=== PATIENT | female | born 1950 | race Caucasian/White ===

== ENCOUNTER → 2017-03-20 | Outpatient (CLI) | payer MEDICARE, BC ==
[~2017-03-20] MED LIST: ASPIR 8181 MG PO; CEVIMELINE HCL30 MG PO; COLACE-DPS100 MG PO; DAILY MULTIPLE1 EAC1 PO; DESYREL-DPS50 MG PO; LIPITOR DPS20 MG PO; MAALOX DPS30 ML PO; MESTINON DPS60 MG PO; PROBIOTIC1 EAC1 PO; TYLENOL DPS325 MG PO; VITAMIN C1000 MG PO; VITAMIN D-32000 UNI1 PO
== END | disposition home or self-care (01) ==
LOC: RAD.S 03-14 10:26
DX: M54.5 Low back pain (principal); M47.817 Spondylosis without myelopathy or radiculopathy, lumbosacral region; R20.0 Anesthesia of skin; R53.1 Weakness

== ENCOUNTER 2017-04-01 12:10 | Observation (INO) | payer MEDICARE, BC ==
[~2017-04-01] VITALS: Ht 154.9 cm; Wt 74.2 kg
[2017-04-04] MEDS ORDERED: LIPITOR DPS20 MG PO (09:40)
[2017-04-04] MEDS ORDERED: DAILY MULTIPLE1 EAC1 PO (09:40)
[2017-04-04] MEDS ORDERED: CEVIMELINE HCL30 MG PO (09:40)
[2017-04-04] MEDS ORDERED: VITAMIN C1000 MG PO (09:40)
[2017-04-04] MEDS ORDERED: PROBIOTIC1 EAC1 PO (09:41)
[2017-04-04] MEDS ORDERED: VITAMIN D-32000 UNI1 PO (09:41)
[2017-04-04] MEDS ORDERED: MESTINON DPS60 MG PO (09:41)
[2017-04-04] MEDS ORDERED: ASPIR 8181 MG PO (09:41)
[2017-04-04] MEDS ORDERED: COLACE-DPS100 MG PO (09:42)
[2017-04-04] MEDS ORDERED: MAALOX DPS30 ML PO (09:42)
[2017-04-04] MEDS ORDERED: DESYREL-DPS50 MG PO (09:42)
[2017-04-04] MEDS ORDERED: TYLENOL DPS325 MG PO (09:42)
--- NOTE | 2017-04-08 08:26 | HP ---
ADMIT: 04/01/2017 RM/LOC: 521 [facility] MR#: [id number] [address] [address] MALIKA RODRIGUEZ [address] [address] History and Physical SEX: F AGE: 66 : 1950 DATE OF SERVICE: CHIEF COMPLAINT: Progressive worsening weakness of her upper and lower extremities. HISTORY OF PRESENT ILLNESS: Malika is a very pleasant 66-year-old female, comes in to clinic today, and I am seeing her in Dr. Fair's absence, for the above complaints. She normally sees Dr. Fabian Fair. Recently saw him in December of 2016. At that time, she complained of over the last 2 to 4 months of increasing problems with sensation of muscle weakness in her thighs, biceps, and triceps. She had noticed it more walking up hills and will often have to go one step at a time. She had noted at that time a few basketball games where if she was not having help, she would fall to the ground because of the weakness she was having in her legs. She just felt that this had been progressively worsening and therefore Dr. Fair started workup. Workup has included seeing multiple specialists and having multiple tests done. She has been seen by Physiatry, Dr. Saravia with the EMGs, as well seen by Rheumatology and Neurology most recently. Dr. Saravia did do the EMGs on her on 01/21/2017, showing no evidence of myopathic process, no evidence of left cervical or lumbosacral radiculopathy, and no evidence of peripheral polyneuropathy. She did have a positive LUZ of 102, but multiple connective tissue panel have been done and all have been negative with other antibodies. Her CRP has been negative. Creatine kinase has been negative. Sed rates have been negative. Rheumatoid factor was negative. Serum myoglobin was normal. Lactate dehydrogenase was normal. Nicci-1 and IgG were negative. Aldolase was negative. Myoglobin in the urine was negative. Most recently, she saw Dr. Duke, and with Neurology at [place] as she was unable to get in with local Neurology. At that time, a brain MRI was ordered which was negative for any acute intracranial pathology. There were mild nonspecific white matter hyperintensities, most likely attributed to chronic small vessel disease. She also had a lumbar MRI showing L4-L5 and L5-S1 facet arthropathy with edema and enhancement suggesting acute inflammatory process. She states that her neurologist called her last week and they wanted to try some oral steroids. She was on Decadron 4 mg daily x3 days, then 2 mg daily x3 days. She presents today telling me that this did not help at all. She continues to have a worsening weakness to the point she feels like she cannot hardly walk across the room. She feels like somebody just needs to figure this out and do something about this. PAST MEDICAL HISTORY: Includes: 1. Hyperlipidemia. 2. 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 3. History of nephrolithiasis with lithotripsy in May of 2014. 4. Generalized osteoarthritis. 5. History of C. diff in July 2014, recurrent episodes in 2013. PAST SURGICAL HISTORY: ADMIT: 04/01/2017 RM/LOC: 521 [facility] MR#: [id number] [address] [place] [id number] MALIKA RODRIGUEZ [address] [place] [address] History and Physical SEX: F AGE: 66 : 1950 1. Status post cholecystectomy. 2. Status post total hysterectomy with BSO and bladder suspension. 3. Nephrolithiasis with lithotripsy 05/2014. MEDICATIONS: 1. Probiotic. 2. Aspirin 81 mg. 3. Multivitamin. 4. Vitamin C. 5. Vitamin D3. ALLERGIES: NO KNOWN DRUG ALLERGIES. SOCIAL HISTORY: The patient lives with her . No alcohol, drug, or tobacco use. She has an accounts payable assistant. No other significant social history. FAMILY HISTORY: Noncontributory. REVIEW OF SYSTEMS: Ten-point review of systems obtained, per HPI, otherwise negative. PHYSICAL EXAMINATION: VITAL SIGNS: Blood pressure 128/76, pulse 76, respirations 16, temperature 97.6, 99% on room air. GENERAL: Alert and oriented x3. No acute distress. HEENT: Pupils equal, round, and reactive. Extraocular muscles intact. Throat clear. Trachea midline. HEART: Regular rate and rhythm. No murmurs, rubs, or gallops. LUNGS: Clear to auscultation bilaterally. No wheezes, or crackles. ABDOMEN: Soft, nontender, and nondistended. No organomegaly. EXTREMITIES: No significant edema. 2+ pulses. NEUROLOGIC: Cranial nerves II through XII are grossly intact. No focal deficits. Generalized strength seems 4 to 5+ on bilateral upper and lower extremities. She does have significant subjective feeling of weakness just getting up out of the chair, but she was able to perform a get up and go test. No sensory deficits that I can ascertain. ASSESSMENT AND PLAN: This is a 66-year-old female with 1. Progressive weakness of upper and lower extremities. 2. Recent lumbar MRI with L4-L5 and L5-S1 facet arthropathy with edema and enhancement suggesting inflammatory process. 3. Possible transverse myelitis. 4. Hyperlipidemia. 5. History of clostridium difficile. PLAN: Discussed at length with the patient and her . I called Dr. Lynn as well, our neurologist to further discuss with him. There is concern ADMIT: 04/01/2017 RM/LOC: 521 [facility] MR#: [id number] [address] [address] MALIKA RODRIGUEZ [address] [place] [address] History and Physical SEX: F AGE: 66 : 1950 for possible traverse myelitis or other compression type issue. She has not had a cervical spine MRI or thoracic spine MRI at this point. She has not had a lumbar puncture. I do feel like there may be an underlying neurologic etiology and expressed my concern to Dr. Lynn. He agreed with admission for OPO to do further MRI of the central nervous system as well as evaluate for possible lumbar puncture and IV steroids if this is indeed a transverse myelitis. Discussed at length with the patient and her and they are in agreement with this plan. Greater than 35 minutes was spent on overall patient care discussing disease process, history, previous testing, etc. Greater than 50% of this visit was spent in [id number] interaction. Danny Garcia MD/ shabbir JOB #: [id number] CC: Fabian Fair, Attending Physician Fabian Fair, Family Physician
--- NOTE | 2017-04-16 17:26 | CO ---
ADMIT: 04/01/2017 RM/LOC: 521 [facility] MR#: [id number] [address] [address] SARAH RODRIGUEZ Anuradha [address] [address] Consultation SEX: F AGE: 66 : 1950 DATE OF CONSULTATION: 04/01/2017 ATTENDING PHYSICIAN: Fabian Fair CONSULTING PHYSICIAN: Faustino Lynn MD REASON FOR CONSULTATION: Weakness. HISTORY OF PRESENT ILLNESS: The patient is a 66-year-old woman with past medical history as below, who was admitted to [facility] for evaluation of progressive weakness. This started in November to December of this year, mostly proximal starting with the lower extremities. She had difficulties with climbing stairs, getting in and out of the car. One to two months ago, this was followed by development of arm and shoulder weakness. The sensation she has is the heaviness of the limbs and muscle tiredness, fatigue like after the exhaustive exercise. There was no numbness or tingling reported anywhere in her body. She has normal bowel and bladder control. There is no saddle anesthesia. Overall, she complains only from the weakness. She denies any double vision nor swallowing difficulties. There is a component of fatigability. The weakness is better with rest. Visual better in the morning and as the day progresses, it becomes much worse. In the last couple of weeks, she became increasingly more weaker to the point that regular ambulation becomes more difficult. FAMILY HISTORY: Not suggestive of any neurological conditions, especially neuromuscular conditions. Mother and father had some cardiac problems. Mother had uterine cancer and father had lung cancer. PAST MEDICAL HISTORY: Significant for hyperlipidemia. She is on Lipitor for about three years. History of carcinoid tumor in the colon, which was excised by colonoscopy with negative followup, this was in 2007. She has history of generalized osteoarthritis. She follows with Dr. Maldonado, record searcher in [place], who treats her for sicca syndrome. The only positive marker is positive LUZ. The treatment that she receives is sevelamer, which she stopped yesterday for concern of side effects of progressive weakness. PAST SURGICAL HISTORY: Include cholecystectomy, hysterectomy with BSO, bladder suspension, and nephrolithiasis with lithotripsy in 2014. ALLERGIES: SHE IS NOT ALLERGIC TO ANY MEDICATIONS TO HER KNOWLEDGE. REVIEW OF SYSTEMS: All systems reviewed, negative except as per HPI. GENERAL: Fatigue. NEUROLOGIC: Weakness. MUSCULOSKELETAL: Myalgias. SOCIAL HISTORY: No significant use of alcohol. Denies tobacco. PHYSICAL EXAMINATION: VITAL SIGNS: Temperature 97.8, heart rate 74, ADMIT: 04/01/2017 RM/LOC: 521 [facility] MR#: [id number] [address] [address] SARAH RODRIGUEZ [address] [place] [address] Consultation SEX: F AGE: 66 : 1950 respirations 18, blood pressure 150/60, and saturation 100% on room air. GENERAL: The patient appears to be in no acute discomfort. HEAD: Normocephalic. NECK: Supple. CHEST: Normal respiratory rate. CARDIOVASCULAR: Regular rate and rhythm. ABDOMEN: Nondistended. EXTREMITIES: No clubbing or cyanosis. SKIN: No rashes. NEUROLOGICAL EXAMINATION: The patient is awake, alert, and appropriately oriented x4. Speech is normal. Language is normal. Fund of knowledge normal. She is euthymic and affect is congruent with mood. Cranial nerves examination reveals normal visual toscano. Normal pupils. Extraocular muscles are intact. Facial sensation is normal. Face is symmetric. Hearing to voice is normal. Uvula midline. Palatal arch is symmetric. Shoulder shrug symmetric. Tongue is midline and freely movable. There are no tongue fasciculations. Motor examination reveals at first close to full strength in all muscle groups. However, with repeated testing, there is apparent fatigability especially in proximal musculatures more than distally, so shoulders and elbows and hips are much easier to fatigue than the others. Tone appears to be fairly unremarkable. Again, the fasciculation noted in major muscle groups. Fine motor movements appear to be intact. Examination of stand up gaze did not reveal any apparent dysconjugate gaze nor ptosis. Sensory; normal to touch, nonlateralizing. Normal to pinprick throughout. Reflexes normal. 2+/4 in all four extremities. No pathological spread or no pathological reflexes were observed. Babinski is poor, is downgoing bilaterally. Coordination; [id number] is intact. Gait, deferred at this time. LABORATORY DATA AND REVIEW OF INVESTIGATIONAL STUDIES: The patient underwent EMG and nerve conduction studies with Dr. Saravia, which did not show any myopathic changes nor neuropathy. Only incidentally, there was right and left median sensory motor neuropathy about the wrist, which is suggestive of carpal tunnel syndrome. The laboratory workup included CBC, CMP that were done repeatedly. There was no elevation of transaminases noted. CRP repeated a couple of times was normal. LUZ positive in 100 ratio. Aldolase was checked recently, negative. Myoglobin was normal. Anti-Nicci was negative. 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 PLAN: The patient is already going for MRI of the C and T-spine to rule out any occult lesion, which after this examination I doubt. We need to obtain myasthenia gravis and Lambert-Eaton antibodies, which will include acetylcholine receptor antibodies. All binding, blocking, and modulating. MUSK antibodies, muscle specific receptor tyrosine kinase, anti-striated ADMIT: 04/01/2017 RM/LOC: 521 [facility] MR#: [id number] [facility] [address] [place] [id number] SARAH RODRIGUEZ [address] [address] Consultation SEX: F AGE: 66 : 1950 muscle antibodies, and VGCC antibodies, voltage-gated calcium channel. We will also obtain some additional studies. Repeat CK. Thyroid peroxidase are global in B12 and folic acid. Depending on the results of MRI, we might consider to perform a trial of Mestinon to see if she responds to it. I would definitely plan for repeating EMG and nerve conduction studies with repetitive stimulation, which might be diagnostic for her condition. If this is positive, we will considered to obtain CT of the chest. If all the studies are negative, I think the next reasonable step will be to obtain paraneoplastic panel. Again depends on the studies and workup and response to Mestinon, we might include more laboratory studies, but not at this time. Thank you very much for this interesting consultation. Faustino Lynn MD/ shabbir JOB #: [id number] CC: Fabian Fair, Attending Physician Fabian Fair, Family Physician
== END 2017-04-03 10:41 | disposition home or self-care (01) ==
LOC: 5MS 12:10
PROVIDERS: ADMIT Family Medicine
DX: M62.81 Muscle weakness (generalized) (principal); E78.5 Hyperlipidemia, unspecified; M19.90 Unspecified osteoarthritis, unspecified site; Z87.442 Personal history of urinary calculi; Z90.49 Acquired absence of other specified parts of digestive tract; Z90.710 Acquired absence of both cervix and uterus; Z79.899 Other long term (current) drug therapy; Z79.82 Long term (current) use of aspirin

== ENCOUNTER → 2017-04-14 | Outpatient (CLI) | payer MEDICARE, BC | END | disposition home or self-care (01) | DX: G70.80 Lambert-Eaton syndrome, unspecified (principal); N20.0 Calculus of kidney; R91.8 Other nonspecific abnormal finding of lung field; R76.0 Raised antibody titer ==